=== PATIENT | female | born 1990 | race Caucasian/White ===

== ENCOUNTER 2025-02-21 12:01 | Outpatient (REF) | payer OTHER, SELFPAY ==
--- OUTSIDE RECORDS SUMMARY | 2025-02-21 13:23 | XMS_ITS | Encounter Summary ---
Author Organization [employer] Address [address] [place] [address] Care Team Providers Care Pest Control Specialist Name Role Phone Gregory Ash DDS Primary Care Provider [phone] Reason for Referral * Imaging (Routine) - Pending Review Specialty Diagnoses / Procedures Referred By Colleen wynn Referred To Contact Radiology Diagnoses Chronic hepatitis C without hepatic coma (CMS/HCC) Transaminitis Procedures US LIVER ELASTOGRAPHY - FIBROSCAN Dilia Coates MD [address] [place] [phone] Phone: tel: fax: Referral ID Status Reason Start Date Expiration Date V isits Requested Visits Authorized [id number] Pending Review 02/16/2025 02/16/2026 1 1 Reason for Visit * Reason Comments HCV follow up Encounter Details Date Type Department Care Team ([facility] st Contact Info) Description 02/16/2025 10:00 AM EDT Telemedicine [address] [phone] Dilia Coates MD [address] [place] [phone] Chronic hepatitis C without hepatic coma (CMS/HCC) (Primary Dx); Transaminitis; Heroin abuse (CMS/HCC); IV drug user; History of syphilis Social History Tobacco Use Types Packs/Day Years Used Date Smoking Tobacco: Never Smokeless Tobacco: Never Alcohol Use Standard Drinks/Week Comments Never 0 (1 standard drink = 0.6 oz pur e alcohol) Alcohol Answer Date Recorded Q1: How often do you have a drink containing alc ohol? 1 02/16/2025 Q2: How many drinks containi ng alcohol do you have on a typical day when you are drinking? 0 02/16/2025 Q3: How often do you have six or more drinks on one occasion? 1 02/16/2025 Housing Stability Answer Date Recorded What is your housing situation today? I have laurent singer 02/16/[address] you li ve. Do you have problems with any of the following? None of the above 02/16/2025 Food Insecurity Answer Date Recorded Within the past 12 months, y ou worried that your food would run out before you got money to buy more: Never True 02/16/2025 Within the past 12 months,th e food you bought just didn't last and you didn't have enough money to get more: Never True 05/2025 Transportation Answer Date Recorded In the past 12 months, has l ack of transportation kept you from medical appts, meetings, work or from getting things needed for daily living? No 02/16/2025 Utilities Answer Date Recorded In the past 12 months, has t he electric, gas, oil or water [employer] threatened to shut off services in your home? No 02/16/2025 Depression Answer Date Recorded Patient Health Questionnaire-2 Score 0 02/16/2025 Internet Access Answer Date Recorded Internet Access Q1 Yes 02/16/2025 Internet Access Q2 Not on file 02/16/2025 Comments Unknown Sex and Gender Information Value Date Recorded Sex Assigned at Female 12/27/2024 8:02 AM EDT Legal Sex Female 8:40 PM EST Gender Identity Female 08/22/2022 8:40 PM EST Sexual Orientation Straight 08/22/2022 8: 40 PM EST documented as of this encounter Progress Notes * Dilia Coates MD - 02/16/2025 10:00 AM EDT Subjective Laureen Pryor is a 34 y.o. female comes in for an initial visit for management of HCV Phone visit Date of diagnosis: 12/27/2024 Route of exposure: injection drug user, relapsed 4 years ago, [facility] Prior Treatment: Yes Was treated 4-5 years ago- does not remember the medication, was for 30 or 60 days Says she was told it was all cleared History of cirrhosis? Yes History of HIV ? No History of HBV ? No History of obesity, diabetes ? No No control Substance use: injection drug user, relapsed 4 years ago, receiving treatment with Methadone at [facility] 7 months clean Housing: moved to [facility] with gilda Was treated in Long-Term for Syphilis, 3 months ago with 3 weekly injection Home services ([facility]/ [facility], etc): none ROS: Denies any yellowing of the skin, abdominal pain/ swelling, nausea/vomiting, changes in stool,vomiting blood. No history of episodes of confusion. Detailed medication reconciliation was performed during the visit today. She is on Topamax, trazodone, latuda and prazosin Objective Physical Exam Constitutional: General: She is not in acute distress. Appearance: She is not ill-appearing. Comments: Speaking in full sentences Psychiatric: Mood and Affect: Mood normal. ALT Date Value Ref Range Status 12/27/2024 309 (H) 10 - 40 IU/L Final AST Date Value Ref Range Status 12/27/2024 224 (H) 10 - 42 IU/L Final Chronic hepatitis C without hepatic coma (CMS/HCC) (Primary) - Glecaprevir-Pibrentasvir (Mavyret) 100-40 MG tablet; Take 3 tablets by mouth Once per day. Transaminitis - Hepatic Function Panel; Future - Gamma Glutamyl Transferase (GGT); Future - Hepatitis A Antibody, Total; Future Heroin abuse (CMS/HCC) IV drug user Sober for 7 months. On methadone Denies alcohol use She needs labs to document immunity against hep A and we need to repeat LFTs Recently [place] and plans to go to a [facility] close to her History of syphilis 1:1 titre 12/27/2024 Was treated in Long-Term for Syphilis, 3 months ago with 3 weekly injection FIB-4 Calculation: 2.43 at 12/27/2024 9:14 AM Calculated from: SGOT/AST: 224 IU/L at 12/27/2024 9:14 AM SGPT/ALT: 309 IU/L at 12/27/2024 9:14 AM Platelets: 168 K/mm3 at 12/27/2024 9:14 AM Age: 34 years Patient with a history of chronic HCV. Pt is treatment naive, Genotype 1a, non- cirrhotic based on Fib-4. HIV negative. Given Fib4 is 2.5, we will recheck LFTs and fibroscan. Lab testing indicates they are Unknown to HAV and Immune to HBV. Of note, this is patient's 2nd infection. She was treated for Hep C 5 years ago. Details of that infection are not known. 1. Discussed with patient the pathophysiology of HCV, HCV transmission of blood and low risk of sexual transmission, liver disease, rate of cirrhosis of 20% over 20 years, risk factors (alcohol, acetaminophen, iron supplementation in absence of documented iron deficiency, and other hepatotoxic agents), safe sexual practices, and STls. 2. I explained the following regarding hepatitis C treatment: Duration is typically 8-12 weeks, depending on genotype, whether patient has previously been treated for hepatitis C, and extent of cirrhosis. Med reconciliation completed with L-3 GCS Calculator and no interactions identified. 3. We discussed the risk for re-infection if patient is re-exposed to HCV. Plan to send Kyaw to pharmacy as MH covering without PA for a total treatment duration of 8 weeks. Patient qualifies for Simplified Treatment via HCV guidelines (from IDSA & AASLD) as they do not have cirrhosis and have not previously undergone treatment. If no adherence issues, only needs repeat VL and LFTs 12 weeks following completion of treatment (SVR) We discussed potential side effects including mild nausea and headache in the first weeks. Stressedmed compliance. Pt to call back sooner with any questions or concerns. No HCC screening indicated at this time documented in this encounter Miscellaneous Notes * Addendum Note - Dilia Coates MD - 02/16/2025 10:00 AM EDTAddended by: DILIA COATES on: 02/16/2025 04:57 PM Modules accepted: Orders documented in this encounter Plan of Treatment Scheduled Orders Name Type Priority Associated Diagnoses Orde r Schedule Hepatic Function Panel Lab Routine Transaminitis Expected: 02/16/2025, Expires: 02/16/2026 Gamma Glutamyl Transferase (GGT) Lab Routine Transaminitis Expected: 02/16/2025, Expires: 02/16/2026 Hepatitis A Antibody, Total Lab Routine Transaminitis Expected: 02/16/2025, Expires: 02/16/2026 US LIVER ELASTOGRAPHY - FIBROSCAN Imaging Routine Chronic hepatitis C without hepatic coma (CMS/HCC) Transaminitis Expected: 02/16/2025, Expires: 02/16/2026 documented as of this encounter Visit Diagnoses Diagnosis Chronic hepatitis C without hepatic coma (CMS/HCC)- Primary Transaminitis Nonspecific elevation of levels of transaminase or lactic acid dehydrogenase (LDH) Heroin abuse (CMS/HCC) IV drug user Other, mixed, or unspecified nondependent drug abuse, unspecified History of syphilis documented in this encounter Care Teams Pest Control Specialist Relationship Specialty Start Date End Date Gregory Ash DDS [address] [place] [phone] PCP - General Dentist 08/08/22 documented as of this encounter
--- OUTSIDE RECORDS SUMMARY | 2025-02-21 13:23 | XMS_ITS | Clinical Summary ---
Author Organization [facility] Address [address] [place] [address] Phone Care Team Providers Care Distribution Center Associate Name Role Phone Unavailable Primary Care Provider Unavailabl e Immunizations Immunization Administration Dates Next Due DTP 11/16/1996, 4,05/17/1993,1992,02/08/1993 Hep B, ped/adol 08/11/1993,02/24/1993,1992 Hib (PRP-T) 02/26/1994, 3,04/10/1993,1992 IPV 11/16/1996, 3,04/10/1993,1992 MMR 06/08/1998,06/11/1994 Td (adult) (MBL), 2 Lf tetan us toxoid, PF, adsorbed 10/10/2004 Varicella 11/16/1996 Social History Tobacco Use Types Packs/Day Years Used Date Smoking Tobacco: Never Assessed Comments Unknown Sex and Gender Information Value Date Recorded Sex Assigned at Not on file Legal Sex Female 4:16 PM EDT Gender Identity Not on file Sexual Orientation Not on file Plan of Treatment Health Maintenance Due Date Last Done Comments Varicella Vaccines (2 of 2 - 2-dose childhood series) 07/06/1998 11/16/1996 DTaP,Tdap,and Td Vaccines (6 - Tdap) 10/11/2004 10/10/2004, 11/16/1996, 07/11/1994, Additional history exists Influenza Vaccines (#1) 2024 COVID-19 Vaccine ( season) 2024 Hepatitis B Vaccines Completed 08/11/1993, 02/24/1993, 1992 HIB Vaccines Completed 02/26/1994, 03/1993, 04/10/1993, Additional history exists IPV Vaccines Completed 11/16/1996, 03/1993, 04/10/1993, Additional history exists MMR Vaccines Completed 06/08/1998, 06/11/1994 HPV Vaccines Aged Out No longer eligi ble based on patient's age to complete this topic Hepatitis A Vaccines Aged Out No long er eligible based on patient's age to complete this topic Men B Vaccine Aged Out No longer elig ible based on patient's age to complete this topic Meningococcal Vaccine Aged Out No francesco saleem eligible based on patient's age to complete this topic Pneumococcal Vaccine Aged Out No long er eligible based on patient's age to complete this topic
--- OUTSIDE RECORDS SUMMARY | 2025-02-21 13:23 | XMS_ITS | Clinical Summary ---
Author Organization [employer] Address [address] [facility] 7[address] [place] [address] Care Team Providers Care Data Warehouse Developer Name Role Phone Gregory Ash DDS Primary Care Provider Allergies Active Allergy Reactions Criticality Noted Date Comments Sulfate 12/27/2024 Medications sodium chloride 0.9 % nebulizer solution with albuterol (5 MG/ML) 0.5% nebulizer solution 0.9 mg/mL Take by nebulization continuously. Active Melatonin 5 MG capsule Take 1 capsule (5 mg) by mouth at bedtime. 30 capsule 2 12/28/19 25 025 Active mirtazapine (Remeron) 7.5 MG tablet Take 1 tablet (7.5 mg) by mouth at bedtime. 30 tablet 3 12/28/19 25 Active prazosin (Minipress) 1 MG capsule Take 1 capsule (1 mg) by mouth at bedtime. 30 capsule 2 12/28/19 25 025 Active lurasidone (Latuda) 20 MG tablet Take 1 tablet (20 mg) by mouth with breakfast. 30 tablet 2 12/28/19 25 025 Active naloxone (Narcan) 4 mg/0.1 mL nasal spray Administer 1 spray (4 mg) into affected nostril(s) if needed for opioid reversal. May repeat every 2-3 minutes if needed, alternating nostrils, until medical assistance becomes available. 2 each 12/28/19 25 026 Active Glecaprevir-P ibrentasvir (Mavyret) 100-40 MG tabletIndicat ions:Chronic hepatitis C without hepatic coma (CMS/HCC) Take 3 tablets by mouth Once per day. 168 tablet 02/17/20 25 025 Active Glecaprevir-P ibrentasvir (Mavyret) 100-40 MG tabletIndicat ions:Chronic hepatitis C without hepatic coma (CMS/HCC) Take 3 tablets by mouth Once per day. 168 tablet 02/17/20 25 025 Discontinued Glecaprevir-P ibrentasvir (Mavyret) 100-40 MG tabletIndicat ions:Chronic hepatitis C without hepatic coma (CMS/HCC) Take 3 tablets by mouth Once per day. 168 tablet 02/17/20 25 025 Discontinued(R eorder (will not trigger notification to Pharmacy)) Active Problems Problem Noted Date Diagnosed Date Schizophrenia 12/27/2024 IV drug user 12/27/2024 Heroin abuse 12/27/2024 Encounters Date Type Department Care Team Description 02/21/[address] [address] Maday Blackman RN Lab Orders 02/16/2025 10:00 AM EDT Telemedicine [address] [phone] Dilia Coates MD Chronic hepatitis C without hepatic coma (CMS/HCC) (Primary Dx); Transaminitis; Heroin abuse (CMS/HCC); IV drug user; History of syphilis 02/06/[address] [address] Velvet Guzman CHW 01/17/[address] [address] Delvin Perdomo MD 01/11/2025 Population Health Risk Score [facility] [address] [place] [phone] Provider, Population Health Generic 12/27/2024 9:00 AM EDT Office Visit [address] [address] Delvin Perdomo MD Hepatitis C virus infection without hepatic coma, unspecified chronicity (Primary Dx); Schizophrenia, unspecified type (CMS/HCC); IV drug user; Heroin abuse (CMS/HCC) from Last 3 Months Social History Tobacco Use Types Packs/Day Years Used Date Smoking Tobacco: Never Smokeless Tobacco: Never Tobacco Cessation:Counseling Given: Not Answered Alcohol Use Standard Drinks/Week Comments Never 0 [...] t he electric, gas, oil or water company threatened to shut off services in your [...] Orientation Straight 08/22/2022 8: 40 PM EST Last Filed Vital Signs Vital Sign Reading Time Taken Comments Blood Pressure 100/66 12/27/2024 8:52 AM EDT Pulse 86 12/27/2024 8:52 AM EDT Temperature 37.1 ??C (98.7 ??F) 12/27/2024 8:52 AM ED T Respiratory Rate 20 12/27/2024 8:52 AM EDT Oxygen Saturation - - Inhaled Oxygen Concentration - - Weight 82.6 kg (182 lb 3.2 oz) 12/27/2024 8:52 A M EDT Height 154.9 cm (5' 1 ) 12/27/2024 8:52 AM EDT Body Mass Index 34.43 12/27/2024 8:52 AM EDT Plan of Treatment Health Maintenance Due Date Last Done Comments DTaP/Tdap/Td Vaccines (1 - Tdap) 2011 Hepatitis A Vaccines (1 of 2 - Risk 2-dose series) 2011 Hepatitis B Vaccines (1 of 3 - 19+ 3-dose series) 2011 12/27/2024 Pneumococcal Vaccine: Pediatrics (0 to 5 Years) and At-Risk Patients (6 to 49) Years) (1 of 2 - PCV) 2011 Pap Smear 2013 Cervical Cancer Screening 2022 HPV/Cotest 2022 COVID-19 Vaccine (1 - 2023-2 5 season) 2024 Influenza Vaccine (#1) 2024 Alcohol/Substance Use Screening 02/16/2026 02/16/2025 Depression Screening 02/16/2026 02/16/2025, 02/16/2025 Family Planning (PISQ) 02/16/2026 02/16/2025 SDOH Screening 02/16/2026 02/16/2025 Tobacco Screening 02/16/2026 02/16/2025 Zoster Vaccines (1 of 2) 2042 RSV Patients and Patients Aged 60 years or older (1 - 1-dose 75+ series) 2067 HIV Screening Completed 12/27/2024 HIB Vaccines Aged Out No longer eligi ble based on patient's age to complete this topic HPV Vaccines Aged Out No longer eligi ble based on patient's age to complete this topic IPV Vaccines Aged Out No longer eligi ble based on patient's age to complete this topic Meningococcal Vaccine Aged Out No francesco saleem eligible based on patient's age to complete this topic RSV under 20 months Aged Out No longe r eligible based on patient's age to complete this topic Rotavirus Vaccines Aged Out No longer eligible based on patient's age to complete this topic Procedures Procedure Name Priority Date/Time Associated Diagnosis Comments HEPATITIS C GENOTYPE (NON ORDERABLE) Routine 12/27/2024 9:14 AM EDT RPR, QUANT (NON ORDERABLE) Routine 12/27/2024 9:14 AM EDT RPR (NON ORDERABLE) Routine 12/27/2024 9 :14 AM EDT HEPATITIS BE ANTIGEN Routine 12/27/2024 9:14 AM EDT Hepatitis C virus infection without hepatic coma, unspecified chronicity HEPATITIS B SURFACE AB QNT Routine 12/27/2024 9:14 AM EDT Hepatitis C virus infection without hepatic coma, unspecified chronicity HEPATITIS B CORE AB TOTAL Routine 12/27/2024 9:14 AM EDT Hepatitis C virus infection without hepatic coma, unspecified chronicity HEPATITIS B SURFACE ANTIGEN W/REFL CONFIRM Routine 12/27/2024 9:14 AM EDT Hepatitis C virus infection without hepatic coma, unspecified chronicity COMPREHENSIVE METABOLIC PANEL Routine 12/27/2024 9:14 AM EDT Hepatitis C virus infection without hepatic coma, unspecified chronicity HEPATITIS C VIRAL RNA, QN REAL TIME PCR W/REFLS Routine 12/27/2024 9:14 AM EDT Hepatitis C virus infection without hepatic coma, unspecified chronicity SYPHILIS: TREPONEMAL ABS W/REFLEX TO RPR AND RPR TITER Routine 12/27/2024 9:14 AM EDT Hepatitis C virus infection without hepatic coma, unspecified chronicity HIV P24 ANTIGEN/ANTIBODY WITH REFLEX TO CONFIRMATION Routine 12/27/2024 9:14 AM EDT Hepatitis C virus infection without hepatic coma, unspecified chronicity CBC WITH AUTO DIFFERENTIAL Routine 12/27/2024 9:14 AM EDT Hepatitis C virus infection without hepatic coma, unspecified chronicity from Last 3 Months Results * (ABNORMAL) RPR, Quant (12/27/2024 9:14 AM EDT) RPR, Quant 1:1(H) NonRea<1:1 titer [facility] 1 12/27/2024 9:14 AM EDT 12/27/2024 Narrative [facility] 1 - 12/29/2024 6:05 AM EDT Performed at: ??[address] ??[id number] Family Consumer Science Teacher: Margarita Syed MD, Phone: ??[phone] Delvin Perdomo MD HISTORICAL/NON ORDERABLE LABS Final Result Performing Organization Address [facility] de Phone Number [facility] 1 * (ABNORMAL) RPR (12/27/2024 9:14 AM EDT) Pathologist [facility] RPR Reactive(A ) Non Reactive [facility] 1 12/27/2024 9:14 AM EDT 12/27/2024 Narrative [facility] 1 - 12/29/2024 6:05 AM EDT Performed at: ??[address] ??[id number] Family Consumer Science Teacher: Margarita Syed MD, Phone: ??[phone] Delvin Perdomo MD HISTORICAL/NON ORDERABLE LABS Final Result Performing Organization Address [facility] de Phone Number [facility] 1 * (ABNORMAL) Syphilis: Treponemal Abs w/Reflex to RPR and RPR Titer (12/27/2024 9:14 AM EDT) T pallidum Antibodies (TP-PA) Reactive( A) Non Reactive [facility] 1 Blood Venous blood specimen / Unknown 12/27/2024 9:14 AM EDT 12/27/2024 Narrative [facility] 1 - 12/29/2024 6:05 AM EDT Performed at: ??01 - [facility] [address] ??[id number] Family Consumer Science Teacher: Margarita Syed MD, Phone: ??[phone] us Delvin Perdomo MD LAB BLOOD ORDERABLES Final Res ult Performing Organization Address [facility] Co de Phone Number [facility] 1 * Hepatitis C Genotype (12/27/2024 9:14 AM EDT) [facility] Hepatitis C Genotype 1a [facility] 1 12/27/2024 9:14 AM EDT 12/27/2024 Narrative [facility] 1 - 12/30/2024 6:05 AM EDT Performed at: ??01 - [facility] [address] ??[id number] Family Consumer Science Teacher: Valentine Paulson MD, Phone: ??[phone] us Delvin Perdomo MD HISTORICAL/NON ORDERABLE LABS Final Result Performing Organization Address [facility] de Phone Number [facility] 1 * (ABNORMAL) Hepatitis B Surface Antibody, Quantitative (12/27/2024 9:14 AM EDT) Pathologist [facility] Hepatitis B Surf Ab Quant 6.5(L) Immunity>1 0 mIU/mL [facility] 1 Comment: ??Status of Immunity ? Anti-HBs Level ? Inconsistent with Immunity ?0.0 - 10.0 Consistent with Immunity ? >10.0 Blood Venous blood specimen / Unknown 12/27/2024 9:14 AM EDT 12/27/2024 Narrative [facility] 1 - 12/28/2024 10:05 AM EDT Performed at: ??01 - [facility] [address] ??[id number] Family Consumer Science Teacher: Margarita Syed MD, Phone: ??[phone] Delvin Perdomo MD LAB BLOOD ORDERABLES Final Res ult Performing Organization Address [facility] Co de Phone Number [facility] 1 * Hepatitis C Viral RNA, Quantitative Real-Time PCR with Reflex to Genotype (12/27/2024 9:14 AM EDT) Pathologist [facility] HCV RNA, QN Real Time PCR 4,590,000 IU/mL [facility] 1 HCV log10 6.662 log10 IU/mL [facility] 1 Test Information: [facility] Comment:The quantitative ran ge of this assay is 15 IU/mL to 100 million IU/mL. HCV Genotype [facility] 1 Comment:To be performed on t his specimen. Blood Venous blood specimen / Unknown 12/27/2024 9:14 AM EDT 12/27/2024 Narrative [facility] 1 - 12/30/2024 6:05 AM EDT Test(s) [id number] C Genotype was developed and its performance characteristics determined by [facility]. It has not been cleared or approved by the Food and Drug Administration. Performed at: ??01 - [facility] [address] ??[id number] Family Consumer Science Teacher: Valentine Paulson MD, Phone: ??[phone] Delvin Perdomo MD LAB BLOOD ORDERABLES Final Res ult Performing Organization Address [facility]/ZIP Co de Phone Number [facility] 1 * (ABNORMAL) CBC auto differential (12/27/2024 9:14 AM EDT) Pathologist [facility] White Blood Cell Count 4.7 4.3 - 10.3 K/mm3 [facility] 1 Red Blood Cell Count 4.26 4.20 - 5.40 K/mm3 [facility] 1 Hemoglobin 11.8(L) 12.0 - 16.0 gm/dL [facility] 1 Hematocrit 36.2(L) 37.0 - 47.0 % [facility] 1 MCV 85 83 - 101 fL [facility] 1 MCH 27.7 27.0 - 34.0 pg [facility] 1 MCHC 32.6 31.5 - 36.0 g/dL [facility] 1 RDW 14.3 11.7 - 15.4 % [facility] 1 Platelet Count 168 140 - 400 K/mm3 [facility] 1 Neutrophils 42 Not Estab. % [facility] 1 Lymphocytes 46 Not Estab. % [facility] 1 Monocytes 9 Not Estab. % [facility] 1 Eosinophils 3 Not Estab. % [facility] 1 Basophils 0 Not Estab. % [facility] 1 Absolute Neutrophils 2.0 1.4 - 7.0 x10E3/uL [facility] 1 Absolute Lymphocytes 2.2 0.7 - 3.1 x10E3/uL [facility] 1 Absolute Monocytes 0.4 0.1 - 0.9 x10E3/uL [facility] 1 Absolute Eosinophils 0.1 0.0 - 0.4 x10E3/uL [facility] 1 Absolute Basophils 0.0 0.0 - 0.2 x10E3/uL [facility] 1 Immature Granulocytes 0 Not Estab. % [facility] 1 Immature Grans (Abs) 0.0 0.0 - 0.1 x10E3/uL [facility] 1 Blood Venous blood specimen / Unknown 12/27/2024 9:14 AM EDT 12/27/2024 Narrative [facility] 1 - 12/27/2024 12:05 PM EDT Performed at: ??01 - [facility] [address] ??[id number] Family Consumer Science Teacher: Kailyn Andres MD, Phone: ??[phone] us Delvin Perdomo MD LAB BLOOD ORDERABLES Final Res ult [facility] * HIV p24 Antigen/Antibody With Reflex to Confirmation (12/27/2024 9:14 AM EDT) Pathologist [facility] HIV Ab/p24 Ag Screen Non Reactive Non Reactive [facility] 1 Comment: HIV-1/HIV-2 antibodies and HIV-1 p24 antigen were NOT detected. There is no laboratory evidence of HIV infection. HIV Negative Blood Venous blood specimen / Unknown 12/27/2024 9:14 AM EDT 12/27/2024 Narrative [facility] 1 - 12/28/2024 6:05 AM EDT Performed at: ??01 - [facility] [address] ??[id number] Family Consumer Science Teacher: Margarita Syed MD, Phone: ??[phone] Delvin Perdomo MD LAB BLOOD ORDERABLES Final Res ult Performing Organization Address [facility]/ZIP Co de Phone Number [facility] 1 * Hepatitis B Core Antibody, Total (12/27/2024 9:14 AM EDT) Pathologist [facility] Hepatitis B Core Antibody Total Negative Negative [facility] 1 Blood Venous blood specimen / Unknown 12/27/2024 9:14 AM EDT 12/27/2024 Narrative [facility] 1 - 12/28/2024 10:05 AM EDT Performed at: ??01 - [facility] ??[id number] Family Consumer Science Teacher: Margarita Syed MD, Phone: ??[phone] Delvin Perdomo MD LAB BLOOD ORDERABLES Final Res ult [facility] * Hepatitis Be Antigen (12/27/2024 9:14 AM EDT) Pathologist [facility] Hepatitis Be Antigen Negative Negative [facility] 1 Blood Venous blood specimen / Unknown 12/27/2024 9:14 AM EDT 12/27/2024 Narrative [facility] 1 - 12/28/2024 10:05 AM EDT Performed at: ??[address] ??[id number] Family Consumer Science Teacher: Margarita Syed MD, Phone: ??[phone] Delvin Perdomo MD LAB BLOOD ORDERABLES Final Res ult Performing Organization Address [facility] de Phone Number [facility] 1 * Hepatitis B Surface Antigen with Reflex Confirmation (12/27/2024 9:14 AM EDT) Pathologist [facility] Hepatitis B Surface Ag Negative Negative [facility] 1 Blood Venous blood specimen / Unknown 12/27/2024 9:14 AM EDT 12/27/2024 Narrative [facility] 1 - 12/28/2024 10:05 AM EDT Performed at: ??01 - [facility] ??[id number] Family Consumer Science Teacher: Margarita Syed MD, Phone: ??[phone] Delvin Perdomo MD LAB BLOOD ORDERABLES Final Res ult Performing Organization Address [facility] de Phone Number [facility] 1 * (ABNORMAL) Comprehensive Metabolic Panel (12/27/2024 9:14 AM EDT) Pathologist [facility] Glucose 95 70 - 99 mg/dL [facility] 1 Urea Nitrogen (BUN) 15 6 - 20 mg/dL [facility] 1 Creatinine, Serum 0.7 0.7 - 1.3 mg/dL [facility] 1 eGFR 118 >59 mL/min/1.7 3 [facility] 1 BUN/Creatinine Ratio 21 9 - 23 [facility] 1 Sodium 140 135 - 145 mEq/L [facility] 1 Potassium 4.0 3.6 - 5.0 mEq/L [facility] 1 Chloride 105 101 - 111 mEq/L [facility] 1 Anion Gap 7.0(L) 10.0 - 18.0 mmol/L [facility] 1 Carbon Dioxide 28 21 - 31 mmol/L [facility] 1 Calcium 8.7 8.4 - 10.5 mg/dL [facility] 1 Protein, Total 6.3(L) 6.4 - 8.9 g/dL [facility] 1 Albumin 4.1 3.5 - 5.0 g/dL [facility] 1 Globulin 2.2 1.5 - 4.5 g/dL [facility] 1 Bilirubin, Total 0.7 0.3 - 1.2 mg/dL [facility] 1 Alkaline Phosphatase 101 30 - 115 IU/L [facility] 1 AST 224(H) 10 - 42 IU/L [facility] 1 ALT 309(H) 10 - 40 IU/L [facility] 1 Blood Venous blood specimen / Unknown 12/27/2024 9:14 AM EDT 12/27/2024 Narrative [facility] 1 - 12/27/2024 12:05 PM EDT Performed at: ??01 - [facility] ??[id number] Family Consumer Science Teacher: Kailyn Andres MD, Phone: ??[phone] us Delvin Perdomo MD LAB BLOOD ORDERABLES Final Res ult [facility] 1 from Last [address] [address] C3 Care Teams Data Warehouse Developer Relationship Specialty Start Date End Date Gregory Ash DDS [address] [place] [id number] PCP - General Dentist 08/08/22
--- OUTSIDE RECORDS SUMMARY | 2025-02-21 13:23 | XMS_ITS | Encounter Summary ---
Author Organization [employer] Address [address] [facility] 7[address] [place] [address] Care Team Providers Care Physicist Solid [employer] Name Role Phone Gregory Ash DDS Primary Care Provider [phone] Reason for Visit * Reason Onset Date Comments Lab Orders 02/21/2025 Encounter Details Date Type Department Care Team ([facility] Contact Info) Description 02/21/2025 Telephone [facility] [address] [place] [address] Maday Blackman RN Lab Orders Social History Tobacco Use Types Packs/Day Years [...] PM EST documented as of this encounter Miscellaneous Notes * Telephone Encounter - Maday Blackman RN - 02/21/2025 11:55 AM EDT Patient called reporting that labs due were not sent to off-site lab. Patient is currently at [facility] lab, hoping to complete labs ordered by Dilia Coates MD. Re-ordered labs from 02/16/2025, and faxed over to [phone] documented in this encounter Plan of Treatment Scheduled Orders Name Type Priority Associated Diagnoses Orde r Schedule Hepatitis A Antibody, Total Lab Routine Transaminitis Expected: 02/21/2025, Expires: 02/21/2026 Gamma Glutamyl Transferase (GGT) Lab Routine Transaminitis Expected: 02/21/2025, Expires: 02/21/2026 Hepatic Function Panel Lab Routine Transaminitis Expected: 02/21/2025, Expires: 02/21/2026 documented as of this encounter Visit Diagnoses Diagnosis Transaminitis Nonspecific elevation of levels of transaminase or lactic acid dehydrogenase (LDH) documented in this encounter Care Teams Physicist [employer] Relationship Specialty Start Date End Date Gregory Ash DDS [address] [place] [id number] PCP - General Dentist 08/08/22 documented as of this encounter
--- OUTSIDE RECORDS SUMMARY | 2025-02-21 13:23 | XMS_ITS | Encounter Summary ---
Author Organization [facility] Address [address] [place] [address] Phone Care Team Providers Care Plate Worker Name Role Phone Unavailable Primary Care Provider Unavailabl e Encounter Details Date Type Department Care Team (Late st Contact Info) Description 05/28/2017 Conversion Encounter [facility] - [address] [address] Social History Tobacco Use Types Packs/Day Years Used Date Smoking Tobacco: Never Assessed Comments Unknown Sex and Gender Information Value Date Recorded Sex Assigned at Not on file Legal Sex Female 4:16 PM EDT Gender Identity Not on file Sexual Orientation Not on file documented as of this encounter Plan of Treatment Not on file documented as of this encounter Visit Diagnoses Not on filedocumented in this encounter
--- OUTSIDE RECORDS SUMMARY | 2025-02-21 13:23 | XMS_ITS | Data Portability ---
Author Organization [place] - [facility] Address [address] [place] [phone] Assessment Encounter Date Assessment Date Assessment LastModified by Organization Details LastModified Time 11/05/2016 11/05/2016 new pt for suboxone intake opiate abuse began at 16 y/o percocet parties presently 2 bundles heroin IV at most last used yesterday denies hospitalizations [facility] here by her boyfriend and others presently 29wks IUP no complications requesting subutex 2.5 tabs daily with no s.e. Hep C Harvoni pending after gestation complete FHx mom/dad heroin/etoh, gparents etoh abuse MHx in family of depression, adhd, anxiety pt suggests same for self Surgeries none ? counseling at/pending at [facility] dx and rx lists updated and see in a/p PE gen clean casual [facility] approp neuro psych wnl speech, eye contact, no tremors/agitation, thought process and content heent mmm ctab rrr ext cool dry no c/c/e labs deferred to old records received AP young candidate for suboxone program and primary care here [facility] until counseling established taran Not available 11/10/2016 13:37:44 Plan of Treatment Reminders Order Date Submit Date Provider Last Modified By Organization Details Last Modified Time Details Appointments None recorded. Lab None recorded. Referral None recorded. Procedures None recorded. Surgeries None recorded. Imaging None recorded. Medication Orders buprenorphi ne HCl 8 mg sublingual tablet 2016 017 [email or web address] [facility][id number], [address] [facility], [place], [address], 7 12:45:03 Patient TargetsNo targets recorded. Patient Instructions Encounter Date Encounter Id Patient Instructions Last Modified By Organization Details Last Modified Time 11/05/2016 [id number] When You Want to Lose Weight: Care Instructions [email or web address] Not available 11/05/2016 12:45:11 hepatitis C: car e instructions Not available 11/05/2016 12:45:11 learning about hepatitis C Not available 11/05/2016 12:45:11 Reason for Referral None Reported. Problems Name Problem SNOMED Code Status Onset Date Resolution Date Notes Provider Name and Address Organization Details Recorded Time Opioid dependence 27266660 Active 2016 Ron Morton MD [address] [place] [address], [phone] , [facility] 7 10:56:22 Obesity 653309284 Active 2016 Ron Morton MD [address] [place] [address], [phone] , [facility] 7 10:56:28 Rheumatic fever 37967318 Active 2016 Ron Morton MD [address] [place] [address], [phone] , [facility] 7 10:56:36 Viral hepatitis C 67359519 Active 2016 Ron Morton MD [address] [place] [address], [phone] , [facility] 7 10:56:49 Primigravida 745232160 Active 2016 Ron Morton MD [address] [place] [address], [phone] , [facility] 7 10:58:00 Problem Notes None recorded. Medical Equipment None Reported. Allergies Allergen ID Allergen Name Allergen Category Reaction Reaction Severity Criticality Documentation Date Start Date Code Code System Note Provider Name and Address Organization Details Recorded Time 3141 Substance with sulfonami de structure and antibacte rial mechanism of action (substanc e) medicatio n Not available Not available Not available 11/05/2016 06126 8003 SNOMED Ron Morton MD [address] [place] [address], [phone] 2[facility] 10:55:45 Medications Name Sig Start Date Stop Date Status Note LastModified by Organization Details LastModified Time buprenorphin e HCl [address] 2.5 TABLET SUBLINGUAL EVERY DAY FOR 15 DAYS active Not Available Not Available Not Available Vitals Date Recorded Heart rate Body weight Body height Body mass index (BMI) Systolic blood pressure Diastolic blood pressure Provider Name and Address Organization Details Last Updated DateTime 72 /min 56375.6 3 g 152.4 cm 35.2 kg/m2 133 mm[Hg] 87 mm[Hg] Ron Morton MD [address] [place] [address], [phone], [facility] 10:54:57 Social History None recorded. Functional Status None recorded. Mental Status None recorded. Family History Nothing Reported. Medical History No medical history recorded. Gynecological HistoryNo gynecological history recorded. Obstetrics History GPAL:G 0 P 0 0 0 0 Past Encounters Encounter ID Performer Location Encounter Start Date Encounter Closed Date Diagnosis/Indication Diagnosis SNOMED-CT Code Diagnosis ICD10 Code Diagnosis Note [id number] Ron Morton MD [facility] [address] [place] [phone] 11/05/2016 10:42:23 11/05/2016 11:33:01 Opioid dependence 87314304 F11.20 Primigravida 551745207 O 09.619 Viral hepatitis C 421137 07 B19.20 Obesity 993811977 E66.9 Rheumatic fever 29256632 I00 Health Concerns Section Related Observation LastModified by Organization Detai ls LastModified Time None Recorded Concern Status LastModified by Organization Details LastModified Time None Recorded Advance Directives Directive None Recorded Payers Encounter Date Sequence Insurance Name Policy Number Policy Patel Covered Member ID Patel Member ID Guarantor Name 11/05/2016 1 [facility] [employer] - TOGETHER (MEDICAID HMO) Laureen Pryor [id number] 1 Laureen Pryor OBGyn Episode No OBEpisode recorded.
[2025-02-21 14:04] LABS: Alanine Aminotransferase 363 U/L (0-31); Albumin Level 4.1 g/dL (3.5-5.0); Alkaline Phosphatase 99 U/L (39-117); Aspartate Amino Transferase 205 U/L (5-31); Bilirubin Direct 0.1 mg/dL (0.0-0.5); Bilirubin Total 0.4 mg/dL (0.0-1.0); Total Protein 7.2 g/dL (6.5-8.0)
[2025-02-22 08:51] LABS: Hepatitis A Antibody IgM 0.21 Index (0-0.79)
== END 2025-02-21 12:02 | disposition home or self-care (01) ==
LOC: HO.LAB 12:01
PROVIDERS: PCP Family Medicine; Visit Provider Family Medicine
DX: R74.01 Elevation of levels of liver transaminase levels (principal)
CPT/HCPCS: 36415; 80076